=== PATIENT | female | born 1960 | race Caucasian/White ===

== ENCOUNTER 2016-05-18 08:00 | Emergency (ER) | payer MEDICARE, MEDICAID ==
[~2016-05-18] VITALS: Ht 162.6 cm; Wt 80.0 kg
[~2016-05-18 08:00] MED LIST: ADIPEX-P37.5 MG PO; ADVAIR 250/28 DISKU1 IH; ADVAIR IH; ALBUTEROL0.09 MG/A1 IH; ALBUTEROL0.83 MG/ML IH; ALPRAZOLAM PO; AMBIEN 5MG TABLE5 MG PO; AMILORIDE HCL5 MG PO; AMITIZA24 MCG PO; ATARAX50 MG PO; ATENOLOL50 MG PO; ATIVAN 0.50.5 MG/TAB PO; ATIVAN 1MG T1 MG/TAB PO; ATIVAN1 MG PO; AZITHROMYCIN250 MG PO; BONIVA1 MG/ML PO; BONIVA150 MG PO; BUSPAR10 MG PO; CLARITIN 1010 MG/TAB PO; CLINORIL 1150 MG/TAB PO; COMBIVENT INH14.7 GM IH; COMPAZINE 110 MG/TAB PO; DEXILANT PO; DILAUDID 2MG TAB2 MG PO; DOXYCYCLINE 10100 MG PO; DYNACIRC PO; DYNACIRC5 MG PO; Dexilant; ELAVIL10 MG PO; ELAVIL100 MG PO; ELAVIL50 MG PO; ENDOCET PO; EPI EZ PEN1 MG/ML IM; EXALGO8 MG PO; FLEXERIL 1010 MG/TAB PO; FLEXERIL10 MG PO; FORTAMET500 MG PO; FUROSEMIDE80 MG PO; IBU800 M1 PO; IMITREX50 MG; IMITREX50 MG PO; INDERAL 10MG10 MG PO; INDERAL 20MG20 MG PO; INDERAL40 MG PO; K-LOR CON PO; KLOR-CON 1010 MEQ PO; KLOR-CON M1010 MEQ PO; KLOR-CON M2020 MEQ PO; LAMICTAL; LAMICTAL 100MG100 MG PO; LAMICTAL PO; LAMICTAL XR100 MG PO; LAMICTAL XR200 MG PO; LASIX 40MG TABL40 MG PO; LASIX 80MG TABL80 MG PO; LASIX80 MG PO; LIPITOR 80MG80 MG PO; LISINOPRIL2.5 MG PO; LOMOTIL 0.025 M1 TAB PO; LOPERAMIDE2 MG PO; LOPRESSOR; LOPRESSOR 225 MG/TAB PO; LORTAB 5/500 501 TAB PO; LORTAB 7.5/5001 TAB; LORTAB 7.5/5001 TAB PO; LORTAB ELIX0.5 MG/ML PO; MACROBID100 MG PO; MAGIC MOUTH PO; MAGNESIUM100 MG; MELOXICAM15 MG PO; MELOXICAM7.5 MG PO; METFORMIN500 MG PO; MIDAMOR 5MG TAB5 MG PO; MIRALAX 255 GM255 GM PO; MIRALAX PA17 GM/Dose PO; MOTRIN 800800 MG/TAB PO; MULTIPLE VITAMI1 CAP PO; NASONEX SPRAY; NEXIUM 20MG CAP20 MG PO; NITROQUICK0.4 MG SL; NITROSTAT0.4 MG SL; NITROSTAT0.4 MG/TAB SL; NORCO 325 MG-7.1 TAB PO; OSCAL 500 TAB500 MG PO; OYST CAL PO; PANTOPRAZOLE40 MG PO; PAXIL CR37.5 MG PO; PEPCID 20MG TAB20 MG PO; PERCOCET 325 MG1 TA2 PO; PERCOCET 325 MG1 TAB PO; PERCOCET 5/321 UDTAB PO; PERCOCET 500 MG1 TAB PO; PHENERGAN 25 TA25 MG PO; PHENERGAN25 MG RC; PHENTERMINE37.5 M1 PO; PLAVIX 75MG TAB75 MG PO; PREDNISONE20 MG PO; PREMARIN PO; PREMARIN V0.625 MG/G VG; PREMARIN0.45 MG PO; PRILOSEC40 MG PO; PROCHLORPERAZIN10 MG PO; PROCHLORPERAZINE PO; PROLOPRIM100 MG PO; PROPRANOLOL HCL40 MG PO; PROPYLTHIOURACI50 M1 PO; PROPYLTHIOURACI50 MG PO; PROTONIX 40MG T40 MG PO; PROVENTIL0.09 MG/A1 IH; PROZAC 10MG10 MG PO; PTU; PYRIDIUM 100MG100 MG PO; PYRIDIUM200 M1 PO; RANITIDINE150 MG PO; REGLAN 10MG10 MG/TAB PO; RT ADVAIR 228 DISKUS IH; SEE LIST; SEREVENT INH; SINGULAIR; SINGULAIR10 MG PO; TAPAZOLE; TEGRETOL; TEGRETOL 2200 MG/TA1 PO; TEGRETOL 2200 MG/TAB PO; TEGRETOL X200 MG/TA1 PO; TEGRETOL200 MG PO; TOPAMAX 25MG25 M1 PO; TOPROL XL100 MG PO; TUSSIONEX PO; VENTOLIN0.09 MG IH; VICTOZA6 MG/ML SC; VICTOZA6 MG/ML SQ; VITAMIN D31000 IU PO; ZANTAC 150150 MG PO; ZANTAC 7575 MG PO; ZITHROMAX; ZITHROMAX 250M250 MG PO; ZITHROMAX Z PA250 MG PO; ZOFRAN 4MG T4 MG/TAB PO; ZOFRAN4 MG PO; ZYRTEC; ZYRTEC 10MG PO; [UNRECOGNIZED DRUG - OTHER] PO; endocet PO; z pack
[2016-05-18 08:09] VITALS: BP 141/74; PULSE 63; TEMP 98
== END 2016-05-18 09:07 | disposition home or self-care (01) ==
LOC: COL.ER 08:00
DX: S93.601A Unspecified sprain of right foot, initial encounter (principal); X50.1XXA Overexertion from prolonged static or awkward postures, initial encounter

== ENCOUNTER 2016-12-16 19:57 | Emergency (ER) | payer MEDICARE, MEDICAID ==
[~2016-12-16] VITALS: Ht 162.6 cm; Wt 83.2 kg
[2016-12-16 20:00] VITALS: TEMP 98.7
[2016-12-16 20:47] LABS: PH 6 (5-8); SQUAMOUS EPITHELIAL 0-2 /hpf; URINE APPEARANCE Clear; URINE BACTERIA None Seen /hpf; URINE BILIRUBIN Negative (NEGATIVE); URINE BLOOD Negative (NEGATIVE); URINE COLOR Yellow; URINE GLUCOSE 3+ (NEGATIVE); URINE KETONE Negative (NEGATIVE); URINE RBC 0-2 /hpf; URINE UROBILINOGEN Negative (NEGATIVE)
[2016-12-16 21:33] LABS: BASO # 0.1 (0.0-0.2); BASO % 0.6 % (0.0-2.0); EOS # 0.2 (0.0-0.7); EOS % 2.8 % (0-4.0); GRAN # 3.6 (1.4-6.5); GRAN % 43.9 % (42.2-75.2); HEMOGLOBIN 13.1 g/dl (12.5-16.0); LYMPH # 3.5 (1.2-3.4); LYMPH % 42.4 % (20.0-51.0); MEAN CELL VOLUME 86 fl (80.0-100.0); MEAN CORPUSCULAR HEMOGLOBIN 28 pg (27.0-31.0); MEAN CORPUSCULAR HGB CONC 32 g/dl (33.0-37.0); MEAN PLATELET VOLUME 10.5 fl (7.4-10.4); MONO # 0.9 (0.1-0.6); MONO % 10.2 % (1.7-9.3); PLATELET COUNT 284 K/mm3 (130-400); RED BLOOD COUNT 4.77 M/mm3 (4.10-5.30); REDCELL DISTRIBUTION WIDTH-CV 12.6 % (11.5-14.5); WHITE BLOOD COUNT 8.3 K/mm3 (4.8-10.8)
[2016-12-16 21:42] LABS: ADJUSTED CALCIUM 9.1 mg/dL (8.4-10.2); ALBUMIN 4.5 gm/dL (3.5-5.0); BILIRUBIN,TOTAL 0.4 mg/dL (0.0-1.0); CALCIUM 9.5 mg/dL (8.4-10.2); CREATININE, serum 0.89 mg/dL (0.52-1.25); POTASSIUM 3.7 mmol/L (3.4-5.0); TOTAL PROTEIN 7.6 gm/dL (6.4-8.2)
[2016-12-16] MEDS ORDERED: FLAGYL500 MG PO (21:45)
[2016-12-16 21:49] VITALS: BP 126/72; PULSE 62
== END 2016-12-16 21:51 | disposition home or self-care (01) ==
LOC: COL.ER 19:57
PROVIDERS: Nurse Practitioner
DX: R10.84 Generalized abdominal pain (principal); R19.7 Diarrhea, unspecified; N89.8 Other specified noninflammatory disorders of vagina; E11.9 Type 2 diabetes mellitus without complications; Z79.84 Long term (current) use of oral hypoglycemic drugs; I10 Essential (primary) hypertension; E03.9 Hypothyroidism, unspecified; J45.909 Unspecified asthma, uncomplicated

== ENCOUNTER 2017-01-14 13:31 | Emergency (ER) | payer MEDICARE, MEDICAID ==
[~2017-01-14] VITALS: Ht 162.6 cm; Wt 85.0 kg
[~2017-01-14 13:31] MED LIST changes: +FLAGYL500 MG PO
[2017-01-14 13:34] VITALS: BP 105/74; TEMP 99.6
[2017-01-14] MEDS ORDERED: ZITHROMAX Z PA250 MG PO (15:09)
[2017-01-14 15:20] VITALS: PULSE 60
== END 2017-01-14 15:30 | disposition home or self-care (01) ==
LOC: COL.ER 13:31
DX: J20.9 Acute bronchitis, unspecified (principal); J45.909 Unspecified asthma, uncomplicated; K21.9 Gastro-esophageal reflux disease without esophagitis; Z90.710 Acquired absence of both cervix and uterus; Z90.49 Acquired absence of other specified parts of digestive tract; Z90.11 Acquired absence of right breast and nipple

== ENCOUNTER 2017-12-16 19:16 | Emergency (ER) | payer MEDICARE ==
[~2017-12-16] VITALS: Ht 162.6 cm; Wt 78.6 kg
[2017-12-16 19:22] VITALS: TEMP 98.6
[2017-12-16 19:53] LABS: HEMATOCRIT 42.3 % (37.0-47.0); HEMOGLOBIN 13.7 g/dl (12.5-16.0); MEAN CELL VOLUME 85 fl (80.0-100.0); MEAN CORPUSCULAR HEMOGLOBIN 28 pg (27.0-31.0); MEAN CORPUSCULAR HGB CONC 32 g/dl (33.0-37.0); MEAN PLATELET VOLUME 10.5 fl (7.4-10.4); PLATELET COUNT 265 K/mm3 (130-400); RED BLOOD COUNT 4.97 M/mm3 (4.10-5.30); REDCELL DISTRIBUTION WIDTH-CV 13.1 % (11.5-14.5)
[2017-12-16 20:04] LABS: ALANINE AMINOTRANSFERASE 30 U/L (9-52); ALBUMIN 3.6 gm/dL (3.5-5.0); ALKALINE PHOSPHATASE 101 U/L (50-136); ANION GAP 11 mmol/L (7-16); AST,SGOT 21 U/L (15-37); BILIRUBIN,TOTAL 0.2 mg/dL (0.0-1.0); BLOOD UREA NITROGEN 13 mg/dL (7-17); CALCIUM 9.2 mg/dL (8.4-10.2); CARBON DIOXIDE 27 mmol/L (22-30); CHLORIDE 100 mmol/L (98-107); CREATININE, serum 0.69 mg/dL (0.52-1.25); GLUCOSE 93 mg/dL (74-106); SODIUM 138 mmol/L (137-145); TOTAL PROTEIN 6.7 gm/dL (6.4-8.2)
[2017-12-16 20:06] LABS: C-REACTIVE PROTEIN < 0.5 mg/dL (0.0-0.9)
[2017-12-16 20:15] LABS: ANISOCYTOSIS 1+; BAND 3 % (0-10); EOSINOPHIL 4 % (0-4); LYMPHOCYTE 46 % (20.0-51.0); NEUTROPHILS 41 % (42.0-75.2); PLATELET ESTIMATE NORMAL (NORMAL)
[2017-12-16 20:31] LABS: COLLECTION METHOD CLEAN CATCH
[2017-12-16 20:41] LABS: PH 9 (5-8); SQUAMOUS EPITHELIAL 0-2 /hpf; URINE APPEARANCE Clear; URINE BACTERIA None Seen /hpf; URINE BILIRUBIN Negative (NEGATIVE); URINE BLOOD Negative (NEGATIVE); URINE COLOR Straw; URINE GLUCOSE Negative (NEGATIVE); URINE KETONE Negative (NEGATIVE); URINE LEUKOCYTE ESTERASE Trace (NEGATIVE); URINE NITRATE Negative (NEGATIVE); URINE PROTEIN(semi-quant) Negative (NEGATIVE); URINE RBC 0-2 /hpf; URINE UROBILINOGEN Negative (NEGATIVE)
[2017-12-16] MEDS ORDERED: LAMICTAL200 MG PO (20:50)
[2017-12-16] MEDS ORDERED: LASIX 80MG TABL80 MG PO (20:51)
[2017-12-16] MEDS ORDERED: ELAVIL100 MG PO (20:55)
[2017-12-16] MEDS ORDERED: ATARAX50 MG PO (20:56)
[2017-12-16] MEDS ORDERED: EDLUAR10 MG SL (20:56)
[2017-12-16] MEDS ORDERED: ATIVAN 0.50.5 MG/TAB PO (20:57)
[2017-12-16 21:30] VITALS: BP 132/76; PULSE 61
== END 2017-12-16 21:30 | disposition home or self-care (01) ==
LOC: COL.ER 19:16
PROVIDERS: Family Medicine
DX: R51 Headache (principal); I10 Essential (primary) hypertension; J44.9 Chronic obstructive pulmonary disease, unspecified; E11.9 Type 2 diabetes mellitus without complications; Z79.51 Long term (current) use of inhaled steroids
CPT/HCPCS: J1170; J1630; J2405; J7120

== ENCOUNTER 2018-12-11 08:17 | Day surgery (SDC) | payer MEDICARE ==
[2018-12-11] VITALS (12 sets, daily range): BP systolic 128–169; BP diastolic 70–89; PULSE 58–70; TEMP 98
[~2018-12-11] VITALS: Ht 162.7 cm; Wt 85.7 kg
[~2018-12-11 08:17] MED LIST changes: +EDLUAR10 MG SL; +LAMICTAL200 MG PO
[2018-12-11 09:01] LABS: HEMATOCRIT 45.5 % (37.0-47.0); HEMOGLOBIN 14.8 g/dl (12.5-16.0); MEAN CELL VOLUME 86 fl (80.0-100.0); MEAN CORPUSCULAR HEMOGLOBIN 28 pg (27.0-31.0); MEAN CORPUSCULAR HGB CONC 33 g/dl (33.0-37.0); MEAN PLATELET VOLUME 10.8 fl (7.4-10.4); PLATELET COUNT 277 K/mm3 (130-400); REDCELL DISTRIBUTION WIDTH-CV 13.1 % (11.5-14.5)
[2018-12-11 09:10] LABS: PROTHROMBIN TIME 11.1 SECONDS (9.7-12.8)
[2018-12-11 09:17] LABS: CREATININE, serum 0.72 (0.52-1.25); POTASSIUM 3.5 mmol/L (3.4-5.0)
[2018-12-11] MEDS ORDERED: CANA300T PO (09:36)
[2018-12-11] MEDS ORDERED: MASON NATURAL2000 IU PO (09:37)
[2018-12-11] MEDS ORDERED: [UNRECOGNIZED DRUG - OTHER] IJ (09:38)
[2018-12-11] MEDS ORDERED: ZANAFLEX CAPSULE4 MG PO (09:39)
[2018-12-11] MEDS ORDERED: TEGRETOL X200 MG/TA1 PO (09:44)
--- NOTE | 2018-12-11 11:07 | NUR ---
ALL MEDICATIONS GIVEN VORB WITH MD. SEE MERGE FOR ALL MEDICATION ADMIN TIMES. SEE MERGE FOR ALL RASS ASSESSMENTS DURING AND POST PROCEDURE. PRE MEDICATED FOR CONTRAST ALLERGY.
--- NOTE | 2018-12-11 11:10 | NUR ---
Back from [employer]. Right bry CD&I. VSS.
--- NOTE | 2018-12-11 11:25 | NUR ---
Patient transported back to room 12 at this time. Patient hooked back up to monitoring equipment. VS stable. Patient denies any pain at this time. Bedside report given to ELI Patten. Visualized right groin site together. Site is clean, dry, and intact with no hematome or oozing present. Site is soft and nontender. Pedal pulses +2 bilaterally. Discussed importance with patient and significant other about flat time and leg straight, head down on pillow. All questions addressed at this time. Bed in locked and lowest position, call light within reach.
--- NOTE | 2018-12-11 14:25 | NUR ---
Pt came out of room and said " If you don't let her go home right now, she is going to pull all of that stuff off and leave" Went in to room and expained that she has 40 minutes left and what could I do to make her comfortable enough to stay. Her back pain is a sharp 10/10. Repostioned and helped to get her food tray placed in a more manageable to eat. She is eating and still in the bed at this time
--- NOTE | 2018-12-11 15:15 | NUR ---
Ambulated to bathroom with steady gait. Right groin remains soft to palpation and CD&I. IV discontinued intact. Discharge instructions given and Dr. Dia office called and follow up appointment made. Transferred to private car by sai
== END 2018-12-11 15:15 | disposition home or self-care (01) ==
LOC: COL.CAR 08:17
PROVIDERS: Internal Medicine Cardiovascular Disease
DX: R07.9 Chest pain, unspecified (principal); I27.20 Pulmonary hypertension, unspecified; I34.0 Nonrheumatic mitral (valve) insufficiency; I51.89 Other ill-defined heart diseases; R60.0 Localized edema; E11.9 Type 2 diabetes mellitus without complications; J44.9 Chronic obstructive pulmonary disease, unspecified; Z91.048 Other nonmedicinal substance allergy status; Z88.3 Allergy status to other anti-infective agents; Z91.041 Radiographic dye allergy status; Z88.2 Allergy status to sulfonamides; Z88.5 Allergy status to narcotic agent; Z88.6 Allergy status to analgesic agent; Z88.1 Allergy status to other antibiotic agents; Z88.8 Allergy status to other drugs, medicaments and biological substances; Z91.018 Allergy to other foods; Z90.710 Acquired absence of both cervix and uterus; Z90.49 Acquired absence of other specified parts of digestive tract; Z82.49 Family history of ischemic heart disease and other diseases of the circulatory system; Z82.3 Family history of stroke; Z82.5 Family history of asthma and other chronic lower respiratory diseases; Z87.891 Personal history of nicotine dependence
CPT/HCPCS: J1200; J1644; J2250; J2405; J2930; J3010; J7512; Q9967

== ENCOUNTER 2020-03-28 11:02 | Emergency (ER) | payer MEDICARE ==
[~2020-03-28] VITALS: Ht 162.6 cm; Wt 81.8 kg
[~2020-03-28 11:02] MED LIST changes: +CANA300T PO; +MASON NATURAL2000 IU PO; +ZANAFLEX CAPSULE4 MG PO; +[UNRECOGNIZED DRUG - OTHER] IJ
[2020-03-28 11:12] VITALS: TEMP 96.9
[2020-03-28 13:42] VITALS: BP 122/77; PULSE 70
== END 2020-03-28 12:56 | disposition home or self-care (01) ==
LOC: COL.ER 11:02
DX: G89.29 Other chronic pain (principal); M54.5 Low back pain; R09.81 Nasal congestion; Z88.0 Allergy status to penicillin; Z91.041 Radiographic dye allergy status; Z88.2 Allergy status to sulfonamides; Z88.1 Allergy status to other antibiotic agents; Z88.6 Allergy status to analgesic agent; Z88.5 Allergy status to narcotic agent; Z88.8 Allergy status to other drugs, medicaments and biological substances; Z87.891 Personal history of nicotine dependence; V89.2XXA Person injured in unspecified motor-vehicle accident, traffic, initial encounter

== ENCOUNTER 2021-02-26 20:31 | Emergency (ER) | payer MEDICARE ==
[~2021-02-26] VITALS: Ht 162.6 cm; Wt 81.8 kg
[2021-02-26 20:55] VITALS: TEMP 97.7
[2021-02-26 21:39] LABS: BASO % 0.5 % (0.0-2.0); EOS # 0.2 K/mm3 (0.0-0.7); EOS % 2.2 % (0-4.0); GRAN # 4.6 K/mm3 (1.4-6.5); GRAN % 54.7 % (42.2-75.2); HEMATOCRIT 40.9 % (37.0-47.0); HEMOGLOBIN 13.1 g/dl (12.5-16.0); LYMPH # 2.6 K/mm3 (1.2-3.4); LYMPH % 30.8 % (20.0-51.0); MEAN CELL VOLUME 87 fl (80.0-100.0); MEAN CORPUSCULAR HEMOGLOBIN 28 pg (27.0-31.0); MEAN CORPUSCULAR HGB CONC 32 g/dl (33.0-37.0); MEAN PLATELET VOLUME 10.6 fl (7.4-10.4); MONO % 11.4 % (1.7-9.3); PLATELET COUNT 272 K/mm3 (130-400); RED BLOOD COUNT 4.69 M/mm3 (4.10-5.30); REDCELL DISTRIBUTION WIDTH-CV 13.2 % (11.5-14.5)
[2021-02-26 22:14] LABS: ALBUMIN 3.8 gm/dL (3.4-4.8); BILIRUBIN,TOTAL 0.3 mg/dL (0.2-1.2); CALCIUM 9.5 mg/dL (8.4-10.2); CREATININE, serum 0.99 mg/dL (0.57-1.11); POTASSIUM 3.6 mmol/L (3.5-4.5)
[2021-02-26 22:20] LABS: TROPONIN-I 0.013 ng/mL (0.00-0.033)
--- NOTE | 2021-02-26 23:50 | NUR ---
Vancomycin Initial Dosing Pharmacy Note Indication/duration: SSTI / 7 DAYS Relevant comorbidities: DM Trough goal: 10-20 DOSING HX: NONE IDENTIFIED BMI: 30.9 WT: 81.8 KG ADJBW: 66 KG SCR: 0.99 ESTCRCL ~63 ML/MIN T 1/2 ~ 12.3 H TMAX: 97.7 WBC: 8.4 LA: 1 MICRO IN PROCESS NO IMAGING AVAILABLE AT THIS TIME WILL LOAD PT WITH 1.5 GM (~18 MG/KG) X1. WILL THEN START A MAINTENANCE REGIMEN OF 1 GM Q18H. WILL FOLLOW RENAL FUNCTION, MICRO, AND TREATMENT PLAN FOR NEED TO ADJUST THERAPY. THANK YOU FOR THIS DOSING CONSULT!
[2021-02-27 02:19] VITALS: BP 124/56; PULSE 90
== END 2021-02-27 02:19 | disposition home or self-care (01) ==
LOC: COL.ER 20:31
PROVIDERS: Emergency Medicine
DX: L03.114 Cellulitis of left upper limb (principal); J45.909 Unspecified asthma, uncomplicated; E11.9 Type 2 diabetes mellitus without complications; G40.909 Epilepsy, unspecified, not intractable, without status epilepticus; Z91.19 Patient's noncompliance with other medical treatment and regimen; Z79.899 Other long term (current) drug therapy
CPT/HCPCS: J3370; J7050

== ENCOUNTER 2021-02-27 10:33 | Emergency (ER) | payer MEDICARE ==
[~2021-02-27] VITALS: Ht 162.6 cm; Wt 82.3 kg
[2021-02-27 10:48] VITALS: TEMP 98.5
[2021-02-27 12:08] VITALS: BP 147/72; PULSE 76
== END 2021-02-27 12:08 | disposition home or self-care (01) ==
LOC: COL.ER 10:33
DX: L03.90 Cellulitis, unspecified (principal); J45.909 Unspecified asthma, uncomplicated; E11.9 Type 2 diabetes mellitus without complications; G40.909 Epilepsy, unspecified, not intractable, without status epilepticus; I27.20 Pulmonary hypertension, unspecified; Z91.19 Patient's noncompliance with other medical treatment and regimen; Z79.899 Other long term (current) drug therapy
CPT/HCPCS: J0878

== ENCOUNTER 2021-03-06 08:00 | Outpatient (RCR) | payer MEDICARE ==
[2021-02-28 09:00] VITALS: BP 140/71; PULSE 62; TEMP 98.7
[2021-03-01 10:00] VITALS: BP 153/77; PULSE 56; TEMP 97.5
[2021-03-02 08:57] VITALS: BP 126/76; PULSE 59; TEMP 97.4
[2021-03-03 14:02] VITALS: BP 172/82; PULSE 61; TEMP 98.2
[2021-03-04 09:05] VITALS: BP 138/73; PULSE 61; TEMP 97.7
[2021-03-05 09:48] VITALS: BP 161/80; PULSE 59; TEMP 98.1
[~2021-03-06] VITALS: Ht 162.6 cm; Wt 81.5 kg
[2021-03-06 09:16] VITALS: BP 137/76; PULSE 61; TEMP 98.1
== END 2021-05-07 | disposition home or self-care (01) ==
LOC: EUO
DX: S41.102A Unspecified open wound of left upper arm, initial encounter (principal)
CPT/HCPCS: J0878